=== PATIENT | male | born 1960 | race African-American/Black ===

== ENCOUNTER 2018-11-02 10:10 | Emergency (ER) | payer MEDICARE, MEDICAID ==
[~2018-11-02] VITALS: Ht 182.9 cm; Wt 81.0 kg
[~2018-11-02 10:10] MED LIST: LEVO1POW MC; LISI-660 PO; METF-960 PO
[2018-11-02] MEDS ORDERED: HALO1 PO (10:59)
[2018-11-02] MEDS ORDERED: RISP.5 PO (10:59)
[2018-11-02] MEDS ORDERED: BENZ0.5T44 PO (10:59)
[2018-11-02] MEDS ORDERED: LORazepam 2 MG/ML VIAL IM ONE (11:00)
[2018-11-02] MEDS ORDERED: HALOPERIDOL LACTATE 5 MG/ML VIAL IM ONE (11:00)
[2018-11-02 14:01] VITALS: BP 118/57
[2018-11-03 09:37] LABS: HIV 1-2 SCREEN 4TH GEN W/RFLX Non Reactive (Non Reactive)
== END 2018-11-02 14:19 | disposition home or self-care (01) ==
LOC: EMS 10:10
DX: R45.1 Restlessness and agitation (principal)
CPT/HCPCS: 36415; 80074; 87389; 96372; 99284; J1630; J2060

== ENCOUNTER 2023-06-20 19:02 | Emergency (ER) | payer MEDICARE, MEDICAID ==
[~2023-06-20] VITALS: Ht 175.3 cm; Wt 49.0 kg
[~2023-06-20 19:02] MED LIST changes: +AMOX1TAB16 PO; +BENZ0.5T6 PO; +HALO1TAB2 PO; -LEVO1POW MC; -LISI-660 PO; -METF-960 PO; +RISP0.5T39 PO
[2023-06-20 20:29] LABS: EOSINOPHILS % (AUTO) 0.7 % (1.0-6.0); HEMOGLOBIN 10.1 g/dL (13.5-17.5); LYMPHOCYTES # (AUTO) 1.3 K/uL (1.0-4.8); LYMPHOCYTES % (AUTO) 11.8 % (22.0-44.0); MEAN CORPUSCULAR HEMOGLOBIN 31.4 pg (26.0-34.0); MEAN CORPUSCULAR HGB CONC 33.8 G/dL (31.0-37.0); MEAN CORPUSCULAR VOLUME 93 fL (80-100); MONOCYTES # (AUTO) 0.8 K/uL (0.1-1.0); MONOCYTES % (AUTO) 7.3 % (2.0-9.0); NEUTROPHILS # (AUTO) 8.4 K/uL (1.8-7.7); NEUTROPHILS % (AUTO) 79.2 % (40.0-70.0); PLATELET COUNT (AUTO) 445 K/uL (150-450); RED BLOOD CELL COUNT(AUTO) 3.23 MIL/uL (4.50-5.90); WHITE BLOOD COUNT (AUTO) 10.6 K/uL (4.5-11.0)
[2023-06-20 20:40] LABS: ANION GAP 4 mmol/L (8-16); CALCIUM, TOTAL 10.2 mg/dL (8.8-10.5); CARBON DIOXIDE 30 mmol/L (22-29); CHLORIDE 99 mmol/L (98-107); CREATININE 0.59 mg/dL (0.60-1.30); GLOMERULAR FILTR. RATE CALC > 60 mL/min (>60); GLUCOSE,RANDOM 98 mg/dL (70-110); POTASSIUM 5.1 mmol/L (3.5-5.1); SODIUM SERUM 133 mmol/L (136-145); UREA NITROGEN, BLOOD 15 mg/dL (7-18)
[2023-06-20 20:46] LABS: ALANINE AMINOTRANSFERASE 43 U/L (12-78); ALBUMIN 3.2 g/dL (3.4-5.0); ALKALINE PHOSPHATASE 58 U/L (46-116); ASPARTATE AMINOTRANSFERASE 43 U/L (15-37); BILIRUBIN,TOTAL 0.5 mg/dL (0.1-1.0); PHOSPHORUS 3.2 mg/dL (2.5-4.9); TOTAL PROTEIN, SERUM 8.1 g/dL (6.4-8.2)
[2023-06-20 20:47] LABS: ALCOHOL, BLOOD (SERUM) < 3 mg/dL (0-10)
[2023-06-20] MEDS: SODIUM CHLORIDE 0.9% 1,000 ML IV ONE (23:23)
[2023-06-20 23:24] VITALS: BP 110/56; PULSE 110; RESP 16; TEMP 98.5
[2023-06-21 00:08] LABS: COVID AG,FIA SOURCE NASAL SWAB
[2023-06-21 00:14] LABS: SARS-COV2 (COVID) ANTIGEN,FIA Negative (Negative)
== END 2023-06-21 00:23 | disposition home or self-care (01) ==
LOC: EMS 19:02
DX: E86.0 Dehydration (principal); F79 Unspecified intellectual disabilities; Z20.822 Contact with and (suspected) exposure to COVID-19
CPT/HCPCS: 99284; 96360; 87426; 80053; 83735; 84100; 85025; 36415; 93005; G0480